=== PATIENT | female | born 1995 | race Caucasian/White ===

== ENCOUNTER 2018-03-17 10:38 | Emergency (ER) | payer MEDICAID, SELFPAY ==
[2018-03-17 10:39] VITALS: BP 116/64; PULSE 88; RESP 16; TEMP 37.2; O2SAT 99; BMI 29.2
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
--- NOTE | 2018-03-17 10:53 | RAD_ITS ---
STUDY: X-RAY - LEFT FOOT CLINICAL: Female, 22 years old. Pain following injury. TECHNIQUE: 3 view(s) of the foot. COMPARISON: None. FINDINGS: Normal talus, calcaneus, and tarsal bones. Normal visualized subtalar, talonavicular, calcaneocuboid, tarsal and tarsometatarsal articulations. Normal metatarsi. There is a hallux valgus deformity. There is a bipartite tibial sesamoid. Normal interphalangeal joint of the great toe. Normal phalanges of the great toe. Normal second through fifth metatarsophalangeal joints. Normal interphalangeal joints and phalanges of the lesser toes. The soft tissue structures are unremarkable. RAD/Foot min 3 Views IMPRESSION: Normal x-ray examination of the foot. Electronically Signed: Boogie Rivas MD at 11:16 EST Tel [phone], Service support ,
--- NOTE | 2018-03-17 12:03 | ED.RN ---
DISCHARGE INSTRUCTIONS GIVEN TO AND REVIEWED WITH PATIENT, PATIENT DENIES QUESTIONS OR CONCERNS AND VOICES UNDERSTANDING OF DISCHARGE INSTRUCTIONS. PT AMBULATES OUT OF ROOM WITHOUT DIFFICULTY.
== END 2018-03-17 12:03 | disposition home or self-care (01) ==
PROVIDERS: Emergency Provider Emergency Medicine; Family Provider Family Medicine; PCP Family Medicine
DX: S99.922A Unspecified injury of left foot, initial encounter (principal); V58.0XXA Driver of pick-up truck or van injured in noncollision transport accident in nontraffic accident, initial encounter; Y93.89 Activity, other specified; Y92.89 Other specified places as the place of occurrence of the external cause; Y99.8 Other external cause status
CPT/HCPCS: 73630; 99282

== ENCOUNTER 2021-06-07 16:58 | Emergency (ER) | payer MEDICAID, SELFPAY ==
[2021-06-07 16:59] VITALS: BP 121/89; PULSE 90; RESP 16; TEMP 35.8; O2SAT 97; BMI 35.9
--- NOTE | 2021-06-07 18:01 | ED.VIS.GI ---
HPI HPI - GI History of Present Illness Chief Complaint: GI Bleed Informant: patient Narrative Narrative: Sent here from urgent care due to rectal bleeding today. States large amount of bright red blood. Patient reports history of hemorrhoids however has not strained much for last couple days. Denies known family history of Crohn's disease or ulcerative colitis or irritable bowel disease Due to being adopted. States has had back pain left flank for last 2 weeks after jumping at a trampoline park. Pain is worse with certain movements. No urinary symptoms. Last menstrual period approximately 18 days ago. She is in the middle of her cycles. She reports rectal exam was performed however states was told it was not coming from her hemorrhoids and referred directly to the ED. She denies lightheaded symptoms. Denies any significant similar symptoms in the past. PFSH PFSH Medical History no medical history Home Medications copper [Paragard T 380-A] 1 ea IY 02/02/16 [History Last Taken Unknown] Allergy/AdvReac Type Severity Reaction Status Date / Time No Known Allergies Allergy Verified 06/07/21 16:59 Surgical History no surgical history Social History Smoking Status: Never smoker ROS ROS ED Constitutional Constitutional ED: Denies chills, fever(s) or sweats Eyes Eyes: Denies change in vision ENT ENT ED: Denies dysphagia or sore throat Cardiovascular Cardiovascular: Denies chest pain, leg edema, palpitations or racing heartbeat Respiratory/Chest Respiratory/Chest: Denies cough, dyspnea or dyspnea on exertion Gastrointestinal Gastrointestinal: Reports other Details: Bright red blood with hemorrhoid history ; Denies abdominal pain, diarrhea, nausea or vomiting Genitourinary Genitourinary ED: Denies dysuria, hematuria or urinary frequency Musculoskeletal Musculoskeletal: Reports back pain; Denies extremity pain or neck pain Integumentary Denies rash or wounds Neurologic Neurologic: Denies headache(s), paresthesias or weakness EXAM Physical Exam Const Vital Signs: 06/07/21 16:59 Temperature 96.4 F L Temperature Source Temporal Pulse Rate 90 Respiratory Rate 16 Blood Pressure 121/89 H Blood Pressure Mean 99 Pulse Ox 97 Oxygen Delivery Method Room Air Positive well nourished and well developed General Appearance ED: well developed and NAD HEENT Reports moist mucous membranes normocephalic and atraumatic Eyes PERRL, EOMs intact bilaterally and conjunctivae normal General Eye ED: Yes normal appearance of both eyes; Negative for pale conjunctiva Neck no lymphadenopathy and supple General: Negative for tenderness Chest Wall Chest: Negative for tenderness Resp normal respiratory effort and normal air movement Effort and Inspection: symmetric chest movement; Negative for respiratory distress Cardio regular rate, regular rhythm and no murmurs Peripheral Pulses: pulses 2+ throughout GI normal to inspection, nondistended, normoactive bowel sounds and non-tender GI Narrative: Nursing present. Rectal exam very small external hemorrhoid anteriorly nontender. There is small irritation in the posterior anus with no fissures or active bleeding. Anoscopy was performed, noted posterior internal hemorrhoid with irritation slight ecchymosis and erythema there was no active bleeding from this. No other hemorrhoids were noted anteriorly with the anoscopy. Palpation: Negative for guarding or rebound tenderness present Back/Spine no thoracic nor lumbar tenderness Back/Spine Narrative: Mild left paralumbar tenderness, no ecchymosis. No rash. Extremity normal to inspection General Extremety ED: Negative for edema or tenderness General Extremity: Negative for edema Neuro oriented x3 and no sensory deficits noted Sensorium / Orientation: awake and alert Skin no rashes or lesions noted and no wounds MDM MDM MDM Narrative Medical decision making narrative: Patient is concerned. Discussed a anoscopy for which she agreed. Labs were obtained hemoglobin 13.6 her vitals are stable. With her back pain with her history likely musculoskeletal urine was obtained negative for any blood, she is not presenting with concerns of kidney stones. Discussed using Tylenol at this time avoiding NSAIDs due to her rectal bleeding. She is adopted therefore no family history known for cancers or irritable bowel disease. Discussed monitoring symptoms and she is referred to GI for follow-up and further management as an outpatient. She is reassured. All questions were answered. Lab Data Attestation: I reviewed the patient's lab results. Labs: Laboratory Results - last 24 hr 06/07/21 06/07/21 06/07/21 17:55 17:58 17:58 WBC 7.8 RBC 4.83 Hgb 13.6 Hct 41.4 MCV 85.7 MCH 28.2 MCHC 32.9 RDW Std Deviation 39.2 RDW Coeff of Paula 12.6 Plt Count 357 MPV 9.5 Immature Gran % (Auto) 0.300 Neut % (Auto) 52.3 Lymph % (Auto) 32.8 [place] % (Auto) 8.6 Eos % (Auto) 5.0 Baso % (Auto) 1.0 Absolute Neuts (auto) 4.1 Absolute Lymphs (auto) 2.54 Nucleated RBC % 0 Sodium 140 Potassium 3.9 Chloride 106 Carbon Dioxide 31.0 Anion Gap 3 L BUN 19 H Creatinine 1.00 Estim Creat Clear Calc 94.45 Est GFR (MDRD) Af Amer 85 Est GFR (MDRD) Non-Af 70 BUN/Creatinine Ratio 19.0 Glucose 85 Calcium 9.5 Urine Color Yellow Urine Clarity Clear Urine pH 7.0 Ur Specific [place] 1.010 Urine Protein Negative Urine Glucose (UA) Normal Urine Ketones 5 H Urine Occult Blood Negative Urine Nitrite Negative Urine Bilirubin Negative Urine Urobilinogen 4 H Ur Leukocyte Esterase Negative Urine RBC 0 SEEN Urine WBC 0 SEEN Ur Squamous Epith Cells 0-5 SEEN Urine Bacteria 1+ Urine Mucus 0 SEEN Urine Test Negative Discharge Plan Triage Chief Complaint: GI Bleed ED Provider: Braydon Gallo Dx/Rx/DC Orders Clinical Impression: Bright red rectal bleeding, Inflamed internal hemorrhoid, Flank pain Instructions: ED Flank Pain, Uncertain Cause, ED Hemorrhoids, ED Lower GI Bleeding (Stable) Prescriptions: No Action copper [ParaGard T 380A] 1 EACH Each 1 ea IY RF: 0 Primary Care Provider: Shan Hemphill Referrals: Shan Hemphill MD [Primary Care Provider] - Friend,DO Chuy [STAFF PHYSICIAN] - 3-5 Days Activity Restrictions/Additional Instructions: Hemoglobin 13.6 today. Internal hemorrhoids seen on anoscopy irritated, but not actively bleeding. Urine negative for blood. Avoid NSAIDs at this time due to rectal bleeding use Tylenol every 6 hours as needed. Monitor your back pain, history not consistent with a kidney stone specially with negative urine for any blood. Follow-up with GI as an outpatient further evaluation and manage. Disposition Disposition: Home, Self Care Discharge Date/Time: 06/07/21 18:53
[2021-06-07 18:12] LABS: Mucous, Urine 0 SEEN /hpf (<or=2+); Red Blood Cells-Urine 0 SEEN /hpf (0-5); White Blood Cells 0 SEEN /hpf (0-5)
[2021-06-07 18:19] LABS: Absolute Lymphocyte Count 2.54 X10^3/uL (0.83-4.51); Absolute Neutrophil Count 4.1 X10^3/uL (2.0-7.7); Basophil# 0.08 X10^3/uL; Eosinophil# 0.39 X10^3/uL; Hematocrit 41.4 % (37-47); Hemoglobin 13.6 g/dL (12.0-15.0); Lymphocyte # 2.54 X10^3/ul (0.83-4.51); Lymphocyte % 32.8 % (19-41); Mean Corp Hgb Conc 32.9 g/dL (32-36); Mean Corpuscular Hgb 28.2 pg (27.0-32.0); Mean Corpuscular Volume 85.7 fL (81-99); Mean Platelet Vol. 9.5 fl (6.2-12.0); Monocyte# 0.67 X10^3/uL; Monocyte% 8.6 % (0-10); NRBC Flagged by Analyzer 0 % (0-5); Neutrophil # 4.05 X10^3/uL (2.7-7.7); Neutrophil % 52.3 % (47-70); Platelet Count 357 K/mm3 (150-450); RBC Distribution Width CV 12.6 % (11.6-14.6); RBC Distribution Width SD 39.2 fl (35.1-43.9); Red Blood Count 4.83 M/mm3 (4.2-5.4); White Blood Count 7.8 K/mm3 (4.4-11.0)
[2021-06-07 18:23] LABS: Color, Urine Yellow (Yellow); Glucose, Dipstick Normal (Normal); Ketone-Dipstick 5 mg/dl (Negative); Leukocyte Esterase-Dipstick Negative /ul (Negative); Nitrite-Dipstick Negative (Negative); Occult Blood-Urine Negative /ul (Negative); Protein-Dipstick Negative (Negative); Urine Bilirubin Dipstick Negative (Negative); Urine Clarity Clear (Clear); Urine Urobilinogen 4 mg/dl (Normal)
[2021-06-07 18:30] LABS: Anion Gap 3 (5-15); BUN 19 mg/dL (7-18); Calcium,Total 9.5 mg/dL (8.5-10.1); Chloride 106 mmol/L (98-107); EST Glomerular Filtration Rate 70 mL/min (>60); Est Glom Filt Rate - Afr Amer 85 mL/min (>60); Estimated Creatinine Clearance 94.45 ml/min; Glucose 85 mg/dL (74-106); Potassium 3.9 mmol/L (3.5-5.1); Sodium Level 140 mmol/L (136-145)
[2021-06-07 18:43] LABS: Bacteria 1+ /hpf (None Seen); Internal QC Validated? YES +Cl - CLEAR BKGD; Pregnancy, Urine Negative Negative; Squamous Epithelial Cells - UA 0-5 SEEN /hpf (5-10)
== END 2021-06-07 18:53 | disposition home or self-care (01) ==
PROVIDERS: Emergency Provider Emergency Medicine; PCP Family Medicine; Visit Provider Emergency Medicine
DX: K62.5 Hemorrhage of anus and rectum (principal); K64.8 Other hemorrhoids
CPT/HCPCS: 46600; 80048; 81001; 81025; 85025; 99283; A4216

== ENCOUNTER 2021-06-21 11:10 | Outpatient (CLI) | payer MEDICAID, SELFPAY ==
[2021-06-21 12:42] LABS: Erythrocyte Sedimentation Rate 10 mm/hr (0-30)
[2021-06-21 13:09] LABS: CRP < 2.90 mg/L (0.0-3.0); Thyroid Stim Hormone (TSH) 1.37 uIU/mL (0.358-3.74)
== END 2021-06-21 23:59 | disposition home or self-care (01) ==
PROVIDERS: PCP Family Medicine; Referring Provider Nurse Practitioner Adult Health; Visit Provider Nurse Practitioner Adult Health
DX: K62.5 Hemorrhage of anus and rectum (principal); K59.09 Other constipation
CPT/HCPCS: 36415; 84443; 85652; 86140

== ENCOUNTER 2021-06-24 08:19 | Outpatient (CLI) | payer MEDICAID, SELFPAY ==
[2021-06-29 20:39] LABS: Calprotectin, Stool 20 ug/g (0-120)
== END 2021-06-24 23:59 | disposition home or self-care (01) ==
PROVIDERS: PCP Family Medicine; Visit Provider Nurse Practitioner Adult Health
DX: K62.5 Hemorrhage of anus and rectum (principal); K59.09 Other constipation
CPT/HCPCS: 83630; 83993

== ENCOUNTER → 2021-08-17 | Outpatient (CLI) | payer OTHER, MEDICAID, SELFPAY ==
[2021-08-17 10:21] LABS: Free T3 2.9 pg/mL (2.18-3.98); T4 Free Direct 0.93 ng/dL (0.76-1.46); Thyroid Stim Hormone (TSH) 1.35 uIU/mL (0.358-3.74)
== END | disposition home or self-care (01) ==
PROVIDERS: PCP Family Medicine
DX: R63.5 Abnormal weight gain (principal)
CPT/HCPCS: 36415; 84439; 84443; 84481

== ENCOUNTER → 2021-09-25 | Outpatient (CLI) | payer OTHER, MEDICAID, SELFPAY ==
--- NOTE | 2021-09-25 07:32 | US_ITS ---
INDICATION: abdominal pain EXAMINATION: Ultrasound US Abdomen Complete TECHNIQUE: Sultana-scale and color Doppler imaging was performed of the abdomen. COMPARISON: None. FINDINGS: LIVER: There is normal echotexture. No focal hepatic lesion. No intrahepatic biliary ductal dilatation. GALLBLADDER AND BILIARY TREE: No shadowing gallstone, pericholecystic fluid or gallbladder wall thickening is demonstrated. The proximal common bile duct measures 3 mm, which is within normal limits for the patient''s age. SONOGRAPHIC GALO''S SIGN: Negative. PANCREAS: No focal abnormality is demonstrated in the pancreas. No pancreatic ductal dilatation. SPLEEN: The spleen is normal in size and homogeneous in echotexture. KIDNEYS: Normal size and appearance of both kidneys. No hydronephrosis. No calculi or masses. VESSELS: Submitted longitudinal images of the intra-abdominal aorta demonstrate no gross abnormalities and are unremarkable. The IVC is patent. US/Abdomen Complete IMPRESSION: No acute findings. Electronically Signed: Jesse Jenkins, at 9:27 EDT ,
== END | disposition home or self-care (01) ==
LOC: US 07:31
PROVIDERS: PCP Family Medicine; Referring Provider Internal Medicine Gastroenterology; Visit Provider Internal Medicine Gastroenterology
DX: R10.12 Left upper quadrant pain (principal)
CPT/HCPCS: 76700

== ENCOUNTER → 2022-02-02 | Outpatient (CLI) | payer OTHER, MEDICAID, SELFPAY ==
--- NOTE | 2022-02-02 09:53 | US_ITS ---
STUDY: FIRST TRIMESTER OBSTETRICAL ULTRASOUND REASON FOR EXAM: Female, 26 years old UNCERTAIN DATES LMP: 12/13/2021. TECHNIQUE: Transvaginal TECHNICAL QUALITY: Adequate. PRIOR ULTRASOUND: None. FINDINGS: There is visualization of a single gestational sac in a normal intrauterine position. The mean sac diameter (MSD) measures 1.63 cm, indicating an estimated gestational age (EGA) of 6 weeks, 3 days. The gestational sac shape is within normal limits. There is a visualized yolk sac. The yolk sac measures 3 mm. The placenta is non-visualized. There is visualization of a live embryo. The crown-rump length (CRL) measures 5.6 mm, indicating an estimated gestational age (EGA) of 6 weeks, 4 days. There is demonstrated cardiac activity with a heart rate of 116 bpm. The estimated gestation age (EGA) by LMP is 7 weeks, 2 days. The estimated date of delivery (DONI) by LMP is 09/19/2022. The estimated gestation age (EGA) by US is 6 weeks, 4 days. The estimated date of delivery (DONI) by US is 09/24/2022. The uterus measures 10 cm x 6.7 cm x 5 cm. There is no demonstrated uterine fibroid. The cervix is closed. The right ovary measures 3.2 cm x 2.5 cm x 2 cm. There is a 2.3 cm x 1.5 cm x 1.6 cm right ovarian cyst. There is no visualized right adnexal mass or complex lesion. The left ovary measures 2.6 cm x 1.7 cm x 1.2 cm. There is no left ovarian cyst. There is no visualized left adnexal mass or complex lesion. There is no fluid in the cul de sac. US/Init OB < 14Wks US IMPRESSION: Single live uterine gestation with mean gestational age of 6 weeks and 4 days. 2.3 cm x 1.5 cm x 1.6 cm right ovarian cyst. Electronically Signed: Boogie Rivas MD at 13:44 EDT ,
== END | disposition home or self-care (01) ==
LOC: US 09:51
PROVIDERS: PCP Family Medicine
DX: Z36.87 Encounter for antenatal screening for uncertain dates (principal)
CPT/HCPCS: 76801

== ENCOUNTER → 2022-02-21 | Outpatient (CLI) | payer OTHER, MEDICAID, SELFPAY ==
[2022-02-21 11:56] LABS: T4 Free Direct 1.06 ng/dL (0.76-1.46); Thyroid Stim Hormone (TSH) 0.76 uIU/mL (0.358-3.74)
== END | disposition home or self-care (01) ==
PROVIDERS: Referring Provider Nurse Practitioner Women's Health; Visit Provider Nurse Practitioner Women's Health
DX: E03.8 Other specified hypothyroidism (principal)
CPT/HCPCS: 36415; 84439; 84443; 84481

== ENCOUNTER → 2022-05-14 | Outpatient (CLI) | payer OTHER, MEDICAID, SELFPAY ==
--- NOTE | 2022-05-14 12:23 | US_ITS ---
STUDY: SECOND AND THIRD TRIMESTER OBSTETRICAL ULTRASOUND REASON FOR EXAM: Female, 26 years old ANATOMY LMP: 12/13/2021. TECHNIQUE: Transabdominal and Transvaginal TECHNICAL QUALITY: Adequate. PRIOR ULTRASOUND: Comparison is made with prior study 02/02/2022. FINDINGS: There is a single intrauterine fetus. The fetus is in a breech presentation. There is demonstrated cardiac activity with a heart rate of 137 bpm. There is a normal amniotic fluid volume. The largest amniotic fluid pocket measures 4 cm x 5.8 cm. The amniotic fluid index (JOSE) is within normal limits. The placenta is posterior and low lying but not previa in location. The tip of the placenta is a 1.8 cm from the cervical os. There are Grade 1 placental changes. The cervix measures 6.1 cm in length. The adnexal regions are not visualized. BIOMETRY: BPD: 4.61 cm: 19 weeks, 6 days HC: 18.46 cm: 20 weeks, 6 days AC: 16.3 cm: 21 weeks, 3 days FL: 3.45 cm: 20 weeks, 6 days CI: 72.6% FL/BPD: 75% FL/HC: FL/AC: 21.2% HC/AC: 1.13 age by current US: 20 weeks, 3 days. DONI by current US: 09/28/2022. Estimated weight: 393 grams, +/- 59 grams, 38 %. age by prior US: 21 weeks, 0 days. DONI by prior US: 09/24/2022. Age by LMP: 21 weeks, 1 days. DONI by LMP: 09/23/2022. ANATOMY: Gender: Female Cranium: Normal lateral ventricles. Normal choroid plexus. Normal cerebellum. Normal cisterna magna. Normal face, nose and lips. Chest: Normal 4-chamber heart. Abdomen/Pelvis: Normal diaphragm. Normal stomach. Normal abdominal wall. Normal cord insertion. Normal 3 vessel cord. Normal kidneys. Normal bladder. Spine: Normal cervical spine. Normal thoracic spine. Normal lumbar spine. Normal sacrum. Extremities: Normal bilateral upper extremities. Normal bilateral lower extremities. US/OB Anatomy w/ Transvaginal IMPRESSION: Single live intrauterine gestation with a mean gestational age of 20 weeks and 3 days. The measurements obtained today following the normal expected range. Low-lying posterior placenta. The tip of the placenta is a 1.8 cm from the cervical os. Electronically Signed: Boogie Rivas MD at 14:45 EST ,
== END | disposition home or self-care (01) ==
DX: Z36.3 Encounter for antenatal screening for malformations (principal)
CPT/HCPCS: 76805; 76817